=== PATIENT | female | born 1950 | race Hispanic/Latino ===

== ENCOUNTER → 2017-08-16 | Outpatient (CLI) | payer OTHER ==
[~2017-08-16] MED LIST: ASPI-555 PO; CHOL100044 PO; CILO100T PO; CITA-106 PO; CLOP75TA14 PO; DULA1.5P SQ; EZET10 PO; FURO40TA5 PO; INSU100I13 SQ; LOSA25TA21 PO; METO-408 PO; OMEP20CA10 PO; PLETAL PO; PREG300C PO; TRAM-355 PO
== END | disposition home or self-care (01) ==
LOC: SHCH 11:30
PROVIDERS: ATTEND Internal Medicine Cardiovascular Disease
DX: I65.21 Occlusion and stenosis of right carotid artery (principal)
CPT/HCPCS: 93880

== ENCOUNTER → 2017-09-05 | Outpatient (CLI) | payer OTHER | END | disposition home or self-care (01) | LOC: RAH 12:51 | PROVIDERS: ATTEND Internal Medicine | DX: I73.9 Peripheral vascular disease, unspecified (principal); E11.51 Type 2 diabetes mellitus with diabetic peripheral angiopathy without gangrene; I70.90 Unspecified atherosclerosis | CPT/HCPCS: 93925 ==

== ENCOUNTER → 2017-10-06 | Outpatient (CLI) | payer OTHER | END | disposition home or self-care (01) | LOC: RAH 14:06 | PROVIDERS: ATTEND Internal Medicine | DX: M19.072 Primary osteoarthritis, left ankle and foot (principal); M85.872 Other specified disorders of bone density and structure, left ankle and foot; N28.1 Cyst of kidney, acquired | CPT/HCPCS: 73620; 76770 ==

== ENCOUNTER → 2018-04-26 | Outpatient (CLI) | payer OTHER ==
[~2018-04-26] MED LIST changes: +LOSA25TA16 PO; -LOSA25TA21 PO
== END | disposition home or self-care (01) ==
LOC: RAH 12:52
PROVIDERS: ATTEND Internal Medicine
DX: N28.1 Cyst of kidney, acquired (principal)
CPT/HCPCS: 76770

== ENCOUNTER → 2019-01-15 | Outpatient (CLI) | payer OTHER ==
[~2019-01-15] MED LIST changes: +AMPI500C12 PO; +APIX5TAB PO; +ATOR40TA71 PO; +BISA5TAB12 PO; -CITA-106 PO; +CLON0.1T PO; -DULA1.5P SQ; +FERR325T22 PO; +FOLI1TAB15 PO; +FURO20TA4 PO; -FURO40TA5 PO; +HYDR-4153 PO; -INSU100I13 SQ; +INSU3INS3 SQ; +LINA145C PO; +LORA10TA7 PO; -LOSA25TA16 PO; -METO-408 PO; +METO25TA6 PO; -OMEP20CA10 PO; +OZEMPIC SQ; -PLETAL PO; +PREG225C PO; -PREG300C PO; +RANO10003 PO; -TRAM-355 PO; +TYL3 PO; +VITAMIN B12 PO
== END | disposition home or self-care (01) ==
LOC: SHCH 10:05
PROVIDERS: ATTEND Internal Medicine Cardiovascular Disease
DX: I65.23 Occlusion and stenosis of bilateral carotid arteries (principal)
CPT/HCPCS: 93880

== ENCOUNTER 2019-03-06 18:28 | Emergency (ER) | payer OTHER ==
[2019-03-06 19:03] LABS: BASOPHILS % (AUTO) 1.3 % (0.0-5.0); EOSINOPHILS % (AUTO) 6.6 % (0.0-8.0); HEMATOCRIT 29.3 % (36-48); LYMPHOCYTES % (AUTO) 27.6 % (21.0-51.0); MEAN CORPUSCULAR HEMOGLOBIN 28.5 pg (27.0-33.0); MEAN CORPUSCULAR HGB CONC 33.9 g/dL (32.0-36.0); MEAN CORPUSCULAR VOLUME 84.3 fL (79-99); MONOCYTES % (AUTO) 8.5 % (3.0-13.0); PLATELET COUNT (AUTO) 236 K/uL (130-400); RED BLOOD CELL COUNT(AUTO) 3.48 MIL/uL (4.00-5.50); RED CELL DISTRIBUTION WIDTH 14.8 % (11.0-15.5); WHITE BLOOD COUNT (AUTO) 7.6 K/uL (4.8-10.8)
[2019-03-06 19:17] LABS: CREATININE 2.8 mg/dL (0.5-1.5); POTASSIUM 5.8 mmol/L (3.5-5.1)
[2019-03-06 19:18] LABS: INR 0.91 (0.85-1.15); PARTIAL THROMBOPLASTIN TIME 29.9 SEC (26.3-35.5); PROTHROMBIN TIME 9.6 SEC (9.6-11.6)
[2019-03-06 19:23] LABS: ALBUMIN 2.9 g/dL (3.5-5.0); BILIRUBIN,TOTAL 0.1 mg/dL (0.2-1.0); TOTAL PROTEIN, SERUM 7.4 g/dL (6.0-8.3)
[2019-03-06] MEDS ORDERED: ALBUTEROL SULFATE 0.083% 2.5 MG/3 ML INH IH ONE (20:00)
[2019-03-06] MEDS ORDERED: SODIUM POLYSTYRENE SULFONATE 15 GM/60 ML ML ONE (20:07)
[2019-03-06] MEDS ORDERED: SODIUM BICARB 50MEQ 50ML VIAL ONE (20:08)
[2019-03-06] MEDS ORDERED: CALCIUM GLUCONATE 1 GM/10 ML VIAL IV ONE (20:08)
[2019-03-06 20:09] LABS: APPEARANCE,URINE Clear (CLEAR); BILIRUBIN,URINE Negative (NEGATIVE); COLOR,URINE Yellow (YELLOW); GLUCOSE, URINE (UA) >=1000 mg/dL (NEGATIVE); KETONES,URINE Negative (NEGATIVE); LEUKOCYTE ESTERASE ,URINE Negative (NEGATIVE); NITRATE,URINE Negative (NEGATIVE); OCCULT BLOOD,URINE Negative (NEGATIVE); PH,URINE 5.5 (5.0-8.0); PROTEIN,URINE 300 mg/dL (NEGATIVE); UROBILINOGEN,URINE 0.2 mg/dL (0.2-1.0)
[2019-03-06] MEDS ORDERED: INSULIN HUMULIN R 100 UNIT/ML 3ML ONE (20:09)
[2019-03-06] MEDS ORDERED: DEXTROSE 50%-WATER 50 ML DISP.SYRIN IV ONE (20:09)
[2019-03-06 20:24] LABS: BACTERIA,URINE Few /HPF (None Seen); MUCUS,URINE Few LPF (None Seen); RBC,URINE 0-1 /HPF (0-1); SQUAMOUS EPITHELIAL CELL,UR Few /HPF (0-2); WBC,URINE 0-1 /HPF (0-1)
== END 2019-03-06 22:27 | disposition home or self-care (01) ==
LOC: EDH 18:28
DX: E87.5 Hyperkalemia (principal); R10.13 Epigastric pain; E11.9 Type 2 diabetes mellitus without complications; E78.5 Hyperlipidemia, unspecified; I10 Essential (primary) hypertension; Z79.4 Long term (current) use of insulin; Z90.49 Acquired absence of other specified parts of digestive tract; Z79.899 Other long term (current) drug therapy; Z79.01 Long term (current) use of anticoagulants
CPT/HCPCS: 36415; 74176; 80053; 81001; 82150; 82550; 83690; 84132; 84484; 85025; 85610; 85730; 93005; 94640; 96374; 96375; 99285; J0610; J1815; J3490; J7070

== ENCOUNTER → 2020-01-16 | Outpatient (CLI) | payer OTHER ==
[~2020-01-16] MED LIST changes: -ASPI-555 PO; +ASPI-556 PO; -EZET10 PO; +EZET10TA13 PO
== END | disposition home or self-care (01) ==
LOC: RAH 12:51
PROVIDERS: ATTEND Internal Medicine
DX: M25.512 Pain in left shoulder (principal)
CPT/HCPCS: 73030

== ENCOUNTER → 2020-01-27 | Outpatient (CLI) | payer OTHER | END | disposition home or self-care (01) | LOC: RAH 10:00 | PROVIDERS: ATTEND Internal Medicine | DX: M51.17 Intervertebral disc disorders with radiculopathy, lumbosacral region (principal); M48.061 Spinal stenosis, lumbar region without neurogenic claudication | CPT/HCPCS: 72148 ==

== ENCOUNTER → 2020-06-03 | Outpatient (CLI) | payer OTHER | END | disposition home or self-care (01) | LOC: SHCH 15:38 | PROVIDERS: ATTEND Internal Medicine Cardiovascular Disease | DX: I82.403 Acute embolism and thrombosis of unspecified deep veins of lower extremity, bilateral (principal); I87.2 Venous insufficiency (chronic) (peripheral) | CPT/HCPCS: 93970 ==

== ENCOUNTER → 2020-07-13 | Outpatient (CLI) | payer OTHER | END | disposition home or self-care (01) | LOC: SHCH 10:46 | PROVIDERS: ATTEND Internal Medicine Cardiovascular Disease | DX: Z09 Encounter for follow-up examination after completed treatment for conditions other than malignant neoplasm (principal); I87.2 Venous insufficiency (chronic) (peripheral) | CPT/HCPCS: 93971 ==

== ENCOUNTER → 2020-07-20 | Outpatient (CLI) | payer OTHER | END | disposition home or self-care (01) | LOC: SHCH 10:00 | PROVIDERS: ATTEND Internal Medicine Cardiovascular Disease | DX: Z09 Encounter for follow-up examination after completed treatment for conditions other than malignant neoplasm (principal); I87.2 Venous insufficiency (chronic) (peripheral); I65.21 Occlusion and stenosis of right carotid artery | CPT/HCPCS: 93971 ==

== ENCOUNTER → 2020-08-31 | Outpatient (CLI) | payer OTHER | END | disposition home or self-care (01) | LOC: RAH 15:21 | PROVIDERS: ATTEND Internal Medicine | DX: M19.012 Primary osteoarthritis, left shoulder (principal); M85.812 Other specified disorders of bone density and structure, left shoulder; M85.88 Other specified disorders of bone density and structure, other site; E88.89 Other specified metabolic disorders | CPT/HCPCS: 73030; 73080 ==

== ENCOUNTER → 2020-09-03 | Outpatient (CLI) | payer OTHER | END | disposition home or self-care (01) | LOC: SHCH 15:26 | PROVIDERS: ATTEND Internal Medicine Cardiovascular Disease | DX: I73.9 Peripheral vascular disease, unspecified (principal) | CPT/HCPCS: 93925 ==

== ENCOUNTER → 2020-09-07 | Outpatient (CLI) | payer OTHER | END | disposition home or self-care (01) | LOC: SHCH 10:14 | PROVIDERS: ATTEND Internal Medicine Cardiovascular Disease | DX: Z09 Encounter for follow-up examination after completed treatment for conditions other than malignant neoplasm (principal); I87.2 Venous insufficiency (chronic) (peripheral) | CPT/HCPCS: 93971 ==

== ENCOUNTER 2020-11-11 22:18 | Inpatient (IN) | payer OTHER ==
[~2020-11-11] VITALS: Ht 175.3 cm; Wt 95.4 kg
[2020-11-11] MEDS: SODIUM CHLORIDE 0.9% 1000ML 1,000 ML IV SCH ×2 (21:45→23:30)
[2020-11-11] MEDS ORDERED: DIPHENHYDRAMINE HCL 25 MG CAPSULE PO PRN (23:30)
[2020-11-11] MEDS ORDERED: LACTULOSE 20 GM/30 ML UDCUP PO PRN (23:30)
[2020-11-11] MEDS ORDERED: DiphenhydrAMINE HCL 50 MG/ML VIAL IV PRN (23:30)
[2020-11-11] MEDS ORDERED: ACETAMINOPHEN 325 MG TAB PO PRN ×2 (23:30)
[2020-11-11] MEDS ORDERED: HYDRALAZINE HCL 25 MG TABLET PO SCH (23:30)
[2020-11-11] MEDS ORDERED: MAG HYDROX/AL HYDROX/SIMETH ES 30 ML SUSP UDCUP PO PRN (23:30)
[2020-11-11] MEDS ORDERED: ZOSYN 3.375GM+NS 50ML 50 ML IV ONE (23:57)
[2020-11-12] VITALS (7 sets, daily range): BP systolic 143–193; BP diastolic 46–81
[2020-11-12] MEDS ORDERED: LIDOCAINE HCL-MPF 1% 2ML VIAL IV PRN ×2
[2020-11-12] MEDS ORDERED: GLUCAGON 1MG KIT 1 MG ML IM PRN
[2020-11-12] MEDS ORDERED: POTASSIUM CHLORIDE 10% ELIXIR 20 MEQ/15 ML UDCUP PO PRN
[2020-11-12] MEDS ORDERED: ACETAMINOPHEN-CODEINE 300/30MG TAB PO PRN
[2020-11-12] MEDS ORDERED: POTASSIUM CHLORIDE 10MEQ/100ML 100 ML IV PRN ×2
[2020-11-12] MEDS ORDERED: DEXTROSE 50%-WATER 50 ML DISP.SYRIN IV PRN
[2020-11-12] MEDS ORDERED: POTASSIUM CHLORIDE 20 MEQ ERTAB PO PRN
[2020-11-12 00:41] LABS: BASOPHILS % (AUTO) 0.3 % (0.0-5.0); EOSINOPHILS % (AUTO) 2.5 % (0.0-8.0); LYMPHOCYTES % (AUTO) 10.1 % (21.0-51.0); MEAN CORPUSCULAR HEMOGLOBIN 25.8 pg (27.0-33.0); MEAN CORPUSCULAR HGB CONC 31.4 g/dL (32.0-36.0); MEAN CORPUSCULAR VOLUME 82.1 fL (79-99); MONOCYTES % (AUTO) 9.4 % (3.0-13.0); NEUTROPHILS % (AUTO) 77.3 % (40.0-77.0); PLATELET COUNT (AUTO) 268 K/uL (130-400); RED BLOOD CELL COUNT(AUTO) 3.41 MIL/uL (4.00-5.50); RED CELL DISTRIBUTION WIDTH 14.6 % (11.0-15.5); WHITE BLOOD COUNT (AUTO) 15.8 K/uL (4.8-10.8)
[2020-11-12 00:49] LABS: CREATININE 4.8 mg/dL (0.5-1.5); POTASSIUM 4.1 mmol/L (3.5-5.1)
[2020-11-12 00:58] LABS: ALBUMIN 1.9 g/dL (3.5-5.0); BILIRUBIN,TOTAL 1.4 mg/dL (0.2-1.0); TOTAL PROTEIN, SERUM 7.3 g/dL (6.0-8.3)
[2020-11-12 01:01] LABS: INR 1.04 (0.85-1.15); PROTHROMBIN TIME 11.3 SEC (9.6-11.6)
[2020-11-12 01:02] LABS: PARTIAL THROMBOPLASTIN TIME 33.7 SEC (26.3-35.5)
[2020-11-12 02:06] LABS: APPEARANCE,URINE Clear (CLEAR); BILIRUBIN,URINE Negative (NEGATIVE); COLOR,URINE Yellow (YELLOW); GLUCOSE, URINE (UA) 250 mg/dL (NEGATIVE); KETONES,URINE Negative (NEGATIVE); LEUKOCYTE ESTERASE ,URINE Negative (NEGATIVE); NITRATE,URINE Negative (NEGATIVE); OCCULT BLOOD,URINE Small (NEGATIVE); PROTEIN,URINE 300 mg/dL (NEGATIVE)
[2020-11-12 02:12] LABS: BACTERIA,URINE None Seen /HPF (None Seen); SQUAMOUS EPITHELIAL CELL,UR Rare /HPF (0-2); WBC,URINE None Seen /HPF (0-1); YEAST,URINE BUDDING None Seen /HPF (None Seen)
[2020-11-12] MEDS: CLONIDINE HCL 0.1 MG TABLET PO PRN (04:20)
[2020-11-12] MEDS: INSULIN HUMULIN R 100 UNIT/ML 3ML SQ SCH ×4 (06:31→21:00)
[2020-11-12] MEDS ORDERED: LOSA25TA41 PO (08:03)
[2020-11-12] MEDS ORDERED: HYDR-4153 PO (08:03)
[2020-11-12] MEDS ORDERED: FURO20TA4 PO (08:03)
[2020-11-12] MEDS ORDERED: VITAD50000 PO (08:03)
[2020-11-12] MEDS ORDERED: CILOSTAZOL 100 MG TAB PO SCH (09:00)
[2020-11-12] MEDS: PHARMACY COMMUNICATION MISC SCH ×2 (09:00→21:00)
[2020-11-12] MEDS ORDERED: PREGABALIN 75 MG CAPSULE PO SCH (09:00)
[2020-11-12] MEDS ORDERED: CLOPIDOGREL BISULFATE 75 MG TAB PO SCH (09:00)
[2020-11-12 09:54] LABS: CREATININE 4.7 mg/dL (0.5-1.5); POTASSIUM 4.3 mmol/L (3.5-5.1)
[2020-11-12] MEDS: PANTOPRAZOLE SODIUM 40 MG TABLET.DR PO SCH (10:00)
[2020-11-12] MEDS: EZETIMIBE 10 MG TAB PO SCH (10:00)
[2020-11-12] MEDS: ENOXAPARIN SODIUM 30 MG/0.3 ML SQ SCH (10:00)
[2020-11-12] MEDS: RANOLAZINE 500 MG TAB.SR.12H PO SCH ×2 (10:00→20:27)
[2020-11-12] MEDS: FERROUS SULFATE 325 MG TABLET.DR PO SCH (10:01)
[2020-11-12] MEDS: METOPROLOL TARTRATE 25 MG TAB PO SCH ×2 (10:01→20:31)
[2020-11-12] MEDS: FOLIC ACID 1 MG TABLET PO SCH (10:01)
[2020-11-12] MEDS: SODIUM CHLORIDE 0.9% 1000ML 1,000 ML IV SCH (10:02)
[2020-11-12] MEDS: ZOSYN 3.375GM+NS 50ML 50 ML IV SCH ×2 (11:55)
[2020-11-12] MEDS ORDERED: HONEY 1 APPL/ML TUBE TP ONE (14:36)
[2020-11-12] MEDS: ASPIRIN 81 MG EC TAB PO SCH (20:27)
[2020-11-12] MEDS: ATORVASTATIN CALCIUM 40 MG TABLET PO SCH (20:27)
[2020-11-12] MEDS ORDERED: INSULIN GLARGINE 100 UNITS/ML 10 ML VIAL SQ SCH (21:00)
[2020-11-13] MEDS: ZOSYN 3.375GM+NS 50ML 50 ML IV SCH ×2 (00:01→12:38)
[2020-11-13 04:00] VITALS: BP 136/58
[2020-11-13] MEDS: SODIUM CHLORIDE 0.9% 1000ML 1,000 ML IV SCH ×2 (05:26→17:41)
[2020-11-13 05:37] LABS: HEMATOCRIT 24.2 % (36-48); MEAN CORPUSCULAR HEMOGLOBIN 26.2 pg (27.0-33.0); MEAN CORPUSCULAR HGB CONC 31.8 g/dL (32.0-36.0); MEAN CORPUSCULAR VOLUME 82.3 fL (79-99); RED BLOOD CELL COUNT(AUTO) 2.94 MIL/uL (4.00-5.50); RED CELL DISTRIBUTION WIDTH 14.7 % (11.0-15.5); WHITE BLOOD COUNT (AUTO) 11.9 K/uL (4.8-10.8)
[2020-11-13 06:04] LABS: CREATININE 4.6 mg/dL (0.5-1.5); POTASSIUM 4.5 mmol/L (3.5-5.1)
[2020-11-13] MEDS: INSULIN HUMULIN R 100 UNIT/ML 3ML SQ SCH ×4 (06:06→20:24)
[2020-11-13 08:00] VITALS: BP 158/43
[2020-11-13] MEDS: FOLIC ACID 1 MG TABLET PO SCH (08:57)
[2020-11-13] MEDS: FERROUS SULFATE 325 MG TABLET.DR PO SCH (08:57)
[2020-11-13] MEDS: PANTOPRAZOLE SODIUM 40 MG TABLET.DR PO SCH (08:59)
[2020-11-13] MEDS: RANOLAZINE 500 MG TAB.SR.12H PO SCH ×2 (08:59→19:22)
[2020-11-13] MEDS: EZETIMIBE 10 MG TAB PO SCH (08:59)
[2020-11-13] MEDS: PHARMACY COMMUNICATION MISC SCH ×2 (09:00→19:15)
[2020-11-13] MEDS: ENOXAPARIN SODIUM 30 MG/0.3 ML SQ SCH (09:00)
[2020-11-13] MEDS: METOPROLOL TARTRATE 25 MG TAB PO SCH ×2 (10:11→19:23)
[2020-11-13] MEDS: HONEY 1 APPL/ML TUBE TP SCH (10:13)
[2020-11-13 11:54] VITALS: BP 204/73
[2020-11-13 12:41] LABS: INR 1.08 (0.85-1.15); PROTHROMBIN TIME 11.1 SEC (9.6-11.6)
[2020-11-13 16:00] VITALS: BP 191/57
[2020-11-13] MEDS: CLONIDINE HCL 0.1 MG TABLET PO PRN ×2 (17:42→20:25)
[2020-11-13] MEDS: ASPIRIN 81 MG EC TAB PO SCH (19:22)
[2020-11-13] MEDS: ATORVASTATIN CALCIUM 40 MG TABLET PO SCH (19:23)
[2020-11-13] MEDS: ACETAMINOPHEN-CODEINE 300/30MG TAB PO PRN (19:24)
[2020-11-13 23:46] VITALS: BP 172/56
[2020-11-14] VITALS (7 sets, daily range): BP systolic 144–206; BP diastolic 48–74
[2020-11-14] MEDS: SODIUM CHLORIDE 0.9% 1000ML 1,000 ML IV SCH
[2020-11-14] MEDS: INSULIN HUMULIN R 100 UNIT/ML 3ML SQ SCH ×4 (05:53→20:26)
[2020-11-14] MEDS: PHARMACY COMMUNICATION MISC SCH ×2 (05:53→20:27)
[2020-11-14 05:57] LABS: HEMATOCRIT 23.8 % (36-48); MEAN CORPUSCULAR HEMOGLOBIN 25.6 pg (27.0-33.0); MEAN CORPUSCULAR HGB CONC 31.1 g/dL (32.0-36.0); MEAN CORPUSCULAR VOLUME 82.4 fL (79-99); RED BLOOD CELL COUNT(AUTO) 2.89 MIL/uL (4.00-5.50); RED CELL DISTRIBUTION WIDTH 14.8 % (11.0-15.5); WHITE BLOOD COUNT (AUTO) 9.1 K/uL (4.8-10.8)
[2020-11-14 06:06] LABS: CREATININE 4.7 mg/dL (0.5-1.5); POTASSIUM 4.5 mmol/L (3.5-5.1)
[2020-11-14] MEDS: FOLIC ACID 1 MG TABLET PO SCH (09:35)
[2020-11-14] MEDS: RANOLAZINE 500 MG TAB.SR.12H PO SCH ×2 (09:35→19:49)
[2020-11-14] MEDS: PANTOPRAZOLE SODIUM 40 MG TABLET.DR PO SCH (09:35)
[2020-11-14] MEDS: METOPROLOL TARTRATE 25 MG TAB PO SCH ×2 (09:35→20:21)
[2020-11-14] MEDS: EZETIMIBE 10 MG TAB PO SCH (09:35)
[2020-11-14] MEDS: FERROUS SULFATE 325 MG TABLET.DR PO SCH (09:35)
[2020-11-14] MEDS: ENOXAPARIN SODIUM 30 MG/0.3 ML SQ SCH (09:36)
[2020-11-14] MEDS: HONEY 1 APPL/ML TUBE TP SCH (09:36)
[2020-11-14] MEDS: ZOSYN 3.375GM+NS 50ML 50 ML IV SCH ×3 (12:17→23:25)
[2020-11-14] MEDS: ONDANSETRON HCL 4 MG/2 ML VIAL IV PRN (12:17)
[2020-11-14] MEDS: CLONIDINE HCL 0.1 MG TABLET PO PRN (16:34)
[2020-11-14] MEDS: ATORVASTATIN CALCIUM 40 MG TABLET PO SCH (19:49)
[2020-11-14] MEDS: ASPIRIN 81 MG EC TAB PO SCH (20:21)
[2020-11-14] MEDS: HYDRALAZINE HCL 25 MG TABLET PO SCH (20:22)
[2020-11-15] VITALS (7 sets, daily range): BP systolic 119–210; BP diastolic 63–87
[2020-11-15] MEDS: ONDANSETRON HCL 4 MG/2 ML VIAL IV PRN (03:01)
[2020-11-15] MEDS: CLONIDINE HCL 0.1 MG TABLET PO PRN ×3 (03:51→17:24)
[2020-11-15] MEDS: INSULIN HUMULIN R 100 UNIT/ML 3ML SQ SCH ×4 (05:50→20:21)
[2020-11-15] MEDS: PHARMACY COMMUNICATION MISC SCH ×2 (09:00→20:14)
[2020-11-15] MEDS: EZETIMIBE 10 MG TAB PO SCH (10:06)
[2020-11-15] MEDS: FERROUS SULFATE 325 MG TABLET.DR PO SCH (10:07)
[2020-11-15] MEDS: RANOLAZINE 500 MG TAB.SR.12H PO SCH ×2 (10:07→20:15)
[2020-11-15] MEDS: FOLIC ACID 1 MG TABLET PO SCH (10:07)
[2020-11-15] MEDS: PANTOPRAZOLE SODIUM 40 MG TABLET.DR PO SCH (10:07)
[2020-11-15] MEDS: METOPROLOL TARTRATE 25 MG TAB PO SCH ×2 (10:07→20:15)
[2020-11-15] MEDS: HYDRALAZINE HCL 25 MG TABLET PO SCH ×3 (10:08→20:15)
[2020-11-15] MEDS: ENOXAPARIN SODIUM 30 MG/0.3 ML SQ SCH (10:08)
[2020-11-15] MEDS: ZOSYN 3.375GM+NS 50ML 50 ML IV SCH ×2 (11:33→23:44)
[2020-11-15] MEDS: METOCLOPRAMIDE 5 MG TABLET PO SCH (16:33)
[2020-11-15] MEDS: HONEY 1 APPL/ML TUBE TP SCH (17:25)
[2020-11-15] MEDS: ASPIRIN 81 MG EC TAB PO SCH (20:14)
[2020-11-15] MEDS: ATORVASTATIN CALCIUM 40 MG TABLET PO SCH (20:15)
[2020-11-16] VITALS (9 sets, daily range): BP systolic 103–229; BP diastolic 62–102
[2020-11-16] MEDS: CLONIDINE HCL 0.1 MG TABLET PO PRN ×3 (04:01→17:28)
[2020-11-16] MEDS: METOCLOPRAMIDE 5 MG TABLET PO SCH ×2 (04:50→17:27)
[2020-11-16] MEDS: INSULIN HUMULIN R 100 UNIT/ML 3ML SQ SCH ×4 (05:55→21:00)
[2020-11-16] MEDS: FOLIC ACID 1 MG TABLET PO SCH (08:24)
[2020-11-16] MEDS: HYDRALAZINE HCL 25 MG TABLET PO SCH ×3 (08:24→20:44)
[2020-11-16] MEDS: FERROUS SULFATE 325 MG TABLET.DR PO SCH (08:24)
[2020-11-16] MEDS: METOPROLOL TARTRATE 25 MG TAB PO SCH ×2 (08:24→20:44)
[2020-11-16] MEDS: PANTOPRAZOLE SODIUM 40 MG TABLET.DR PO SCH (08:25)
[2020-11-16] MEDS: RANOLAZINE 500 MG TAB.SR.12H PO SCH ×2 (08:25→20:44)
[2020-11-16] MEDS: ENOXAPARIN SODIUM 30 MG/0.3 ML SQ SCH (08:25)
[2020-11-16] MEDS: EZETIMIBE 10 MG TAB PO SCH (08:25)
[2020-11-16] MEDS: HONEY 1 APPL/ML TUBE TP SCH (08:26)
[2020-11-16] MEDS ORDERED: PIPE3.379 IV (08:43)
[2020-11-16] MEDS ORDERED: AMLO-257 PO (08:44)
[2020-11-16] MEDS: PHARMACY COMMUNICATION MISC SCH ×2 (09:00→21:00)
[2020-11-16] MEDS ORDERED: FUROSEMIDE 40 MG TABLET PO SCH (09:00)
[2020-11-16] MEDS: AMLODIPINE BESYLATE 5 MG TAB PO SCH (11:02)
[2020-11-16] MEDS: ZOSYN 3.375GM+NS 50ML 50 ML IV SCH (11:03)
[2020-11-16] MEDS: ACETAMINOPHEN-CODEINE 300/30MG TAB PO PRN (17:29)
[2020-11-16] MEDS: ATORVASTATIN CALCIUM 40 MG TABLET PO SCH (20:44)
[2020-11-16] MEDS: ASPIRIN 81 MG EC TAB PO SCH (20:45)
[2020-11-17] MEDS: ZOSYN 3.375GM+NS 50ML 50 ML IV SCH ×2 (00:59→12:39)
[2020-11-17 03:50] VITALS: BP 221/83
[2020-11-17 05:39] LABS: HEMATOCRIT 28.9 % (36-48); MEAN CORPUSCULAR HEMOGLOBIN 26.3 pg (27.0-33.0); MEAN CORPUSCULAR HGB CONC 31.8 g/dL (32.0-36.0); MEAN CORPUSCULAR VOLUME 82.6 fL (79-99); RED BLOOD CELL COUNT(AUTO) 3.5 MIL/uL (4.00-5.50); RED CELL DISTRIBUTION WIDTH 14.9 % (11.0-15.5); WHITE BLOOD COUNT (AUTO) 7.7 K/uL (4.8-10.8)
[2020-11-17 05:52] LABS: CREATININE 4.5 mg/dL (0.5-1.5); POTASSIUM 4.8 mmol/L (3.5-5.1)
[2020-11-17 07:30] VITALS: BP 228/91
[2020-11-17] MEDS: INSULIN HUMULIN R 100 UNIT/ML 3ML SQ SCH ×2 (07:30→11:53)
[2020-11-17] MEDS: METOPROLOL TARTRATE 25 MG TAB PO SCH (07:52)
[2020-11-17] MEDS: AMLODIPINE BESYLATE 5 MG TAB PO SCH (07:52)
[2020-11-17] MEDS: CLONIDINE HCL 0.1 MG TABLET PO PRN (07:53)
[2020-11-17] MEDS: RANOLAZINE 500 MG TAB.SR.12H PO SCH (07:54)
[2020-11-17] MEDS: METOCLOPRAMIDE 5 MG TABLET PO SCH (07:54)
[2020-11-17] MEDS: PANTOPRAZOLE SODIUM 40 MG TABLET.DR PO SCH (07:54)
[2020-11-17] MEDS: FOLIC ACID 1 MG TABLET PO SCH (07:54)
[2020-11-17] MEDS: FERROUS SULFATE 325 MG TABLET.DR PO SCH (07:54)
[2020-11-17] MEDS: EZETIMIBE 10 MG TAB PO SCH (07:54)
[2020-11-17] MEDS: ENOXAPARIN SODIUM 30 MG/0.3 ML SQ SCH (07:57)
[2020-11-17] MEDS: ONDANSETRON HCL 4 MG/2 ML VIAL IV PRN (07:58)
[2020-11-17] MEDS: HYDRALAZINE HCL 25 MG TABLET PO SCH (08:04)
[2020-11-17 11:00] VITALS: BP_SYST 121; BP_SYST 212; BP_DIAS 82
[2020-11-17] MEDS ORDERED: HYDR-4153 PO (11:42)
[2020-11-17] MEDS ORDERED: CLON0.1T PO (11:42)
[2020-11-17] MEDS ORDERED: HYDRALAZINE HCL 25 MG TABLET PO SCH ×2 (11:45)
[2020-11-17] MEDS ORDERED: CLONIDINE HCL 0.1 MG TABLET PO SCH ×2 (11:55→21:00)
[2020-11-17 14:00] VITALS: BP 165/54
== END 2020-11-17 18:00 | disposition home health service (06) | DRG 982 ==
LOC: EDH 22:18 → EDHIP 22:19 → UNDOADMIN 23:12 → EDHIP 23:12 → 3AH 11-12 01:09
PROVIDERS: ADMIT Internal Medicine; ATTEND Internal Medicine
PROC: 0JDQ0ZZ Extraction of Right Foot Subcutaneous Tissue and Fascia, Open Approach (ICD-10-PCS; principal; 2020-11-12)
PROC: 02HV33Z Insertion of Infusion Device into Superior Vena Cava, Percutaneous Approach (ICD-10-PCS; 2020-11-13)
PROC: B548ZZA Ultrasonography of Superior Vena Cava, Guidance (ICD-10-PCS; 2020-11-13)
DX: E11.69 Type 2 diabetes mellitus with other specified complication (principal); L03.115 Cellulitis of right lower limb; F11.20 Opioid dependence, uncomplicated; I13.0 Hypertensive heart and chronic kidney disease with heart failure and stage 1 through stage 4 chronic kidney disease, or unspecified chronic kidney disease; L97.419 Non-pressure chronic ulcer of right heel and midfoot with unspecified severity; M86.8X7 Other osteomyelitis, ankle and foot; L02.611 Cutaneous abscess of right foot; E11.621 Type 2 diabetes mellitus with foot ulcer; E11.22 Type 2 diabetes mellitus with diabetic chronic kidney disease; E11.3299 Type 2 diabetes mellitus with mild nonproliferative diabetic retinopathy without macular edema, unspecified eye; E11.51 Type 2 diabetes mellitus with diabetic peripheral angiopathy without gangrene; E11.65 Type 2 diabetes mellitus with hyperglycemia; E78.2 Mixed hyperlipidemia; F32.9 Major depressive disorder, single episode, unspecified; I25.10 Atherosclerotic heart disease of native coronary artery without angina pectoris; I50.9 Heart failure, unspecified; I65.23 Occlusion and stenosis of bilateral carotid arteries; I70.0 Atherosclerosis of aorta; I87.2 Venous insufficiency (chronic) (peripheral); K21.9 Gastro-esophageal reflux disease without esophagitis; L97.519 Non-pressure chronic ulcer of other part of right foot with unspecified severity; M15.9 Polyosteoarthritis, unspecified; N18.9 Chronic kidney disease, unspecified; M54.16 Radiculopathy, lumbar region; I77.1 Stricture of artery; B96.1 Klebsiella pneumoniae [K. pneumoniae] as the cause of diseases classified elsewhere; M48.061 Spinal stenosis, lumbar region without neurogenic claudication; Z79.01 Long term (current) use of anticoagulants; Z79.02 Long term (current) use of antithrombotics/antiplatelets; Z79.4 Long term (current) use of insulin; Z79.899 Other long term (current) drug therapy; Z82.0 Family history of epilepsy and other diseases of the nervous system; Z82.3 Family history of stroke; Z82.49 Family history of ischemic heart disease and other diseases of the circulatory system; Z82.5 Family history of asthma and other chronic lower respiratory diseases; Z83.3 Family history of diabetes mellitus; Z98.61 Coronary angioplasty status; Z79.2 Long term (current) use of antibiotics
CPT/HCPCS: 36415; 36600; 71045; 73630; 73718; 80048; 80053; 81001; 82948; 85025; 85027; 85610; 85730; 87040; 87070; 87076; 87077; 87088; 87186; 87205; C1894; G0378; J1650; J1815; J2405; J2543; J7030

== ENCOUNTER → 2022-05-19 | Outpatient (CLI) | payer OTHER ==
[~2022-05-19] MED LIST changes: +AMLO-257 PO; -AMPI500C12 PO; -CHOL100044 PO; -OZEMPIC SQ; +PIPE3.379 IV; -PREG225C PO; +VITAD50000 PO
== END | disposition home or self-care (01) ==
LOC: RAH 09:32
PROVIDERS: ATTEND Internal Medicine Gastroenterology
DX: N28.1 Cyst of kidney, acquired (principal); R10.13 Epigastric pain; Z90.49 Acquired absence of other specified parts of digestive tract
CPT/HCPCS: 76700

== ENCOUNTER 2022-05-26 05:53 | Day surgery (SDC) | payer OTHER ==
[2022-05-24 11:29] LABS: BASOPHILS % (AUTO) 0.6 % (0.0-5.0); EOSINOPHILS % (AUTO) 16.8 % (0.0-8.0); HEMATOCRIT 31.7 % (36-48); LYMPHOCYTES % (AUTO) 13.2 % (21.0-51.0); MEAN CORPUSCULAR HEMOGLOBIN 29.7 pg (27.0-33.0); MEAN CORPUSCULAR HGB CONC 31.9 g/dL (32.0-36.0); MEAN CORPUSCULAR VOLUME 93.2 fL (79-99); MONOCYTES % (AUTO) 10.9 % (3.0-13.0); NEUTROPHILS % (AUTO) 57.5 % (40.0-77.0); PLATELET COUNT (AUTO) 188 K/uL (130-400); RED CELL DISTRIBUTION WIDTH 13.9 % (11.0-15.5); WHITE BLOOD COUNT (AUTO) 9.7 K/uL (4.8-10.8)
[2022-05-24 11:40] LABS: INR 0.99 (0.85-1.15); PROTHROMBIN TIME 10.8 SEC (9.6-11.6)
[2022-05-24 11:41] LABS: PARTIAL THROMBOPLASTIN TIME 29.9 SEC (26.3-35.5)
[2022-05-24 11:58] LABS: POTASSIUM 4.9 mmol/L (3.5-5.1)
[2022-05-24 12:17] LABS: CREATININE 9.2 mg/dL (0.5-1.5)
[2022-05-24 12:37] LABS: B-TYPE NATRIURETIC PEPTIDE 353 pg/mL (0-100)
[2022-05-26] VITALS (10 sets, daily range): BP systolic 126–136; BP diastolic 47–60
[~2022-05-26] VITALS: Ht 154.9 cm; Wt 96.2 kg
[~2022-05-26 05:53] MED LIST changes: -AMLO-257 PO; -APIX5TAB PO; -ASPI-556 PO; -ATOR40TA71 PO; +B&C/1TAB3 PO; +BISA-151 PO; -BISA5TAB12 PO; +CALC0.253 PO; +CARV25TA PO; -CILO100T PO; -CLOP75TA14 PO; +DIPH25CA53 PO; +EZET-61 PO; -EZET10TA13 PO; +FERR210T PO; -FERR325T22 PO; -FOLI1TAB15 PO; -FURO20TA4 PO; -HYDR-4153 PO; +HYDR-4154 PO; +INSLAN SQ; -INSU3INS3 SQ; -LINA145C PO; -LORA10TA7 PO; +LOSA50TA64 PO; -METO25TA6 PO; +NIFE-40 PO; -PIPE3.379 IV; +PREG225C7 PO; -RANO10003 PO; -VITAMIN B12 PO
[2022-05-26] MEDS ORDERED: 0.9%NACL 1000ML 1,000 ML IV ONE (06:56)
[2022-05-26] MEDS ORDERED: LIDOCAINE HCL 1% 20 ML VIAL ONE (07:13)
[2022-05-26] MEDS ORDERED: IODIXANOL 320 MG/ML 100 ML VIAL ONE (07:14)
[2022-05-26] MEDS ORDERED: MIDAZOLAM HCL 1 MG/ML 2ML VIAL ONE (07:14)
[2022-05-26] MEDS ORDERED: FENTANYL CITRATE PF 50 MCG/1 ML 2ML VIAL ONE (07:14)
[2022-05-26] MEDS ORDERED: HEPARIN 10,000 UNIT/10ML (1,000 UNIT/ML) VIAL ONE (07:14)
[2022-05-26] MEDS ORDERED: CLOPIDOGREL 300MG TAB ONE (08:27)
[2022-05-26] MEDS ORDERED: ASPIRIN 81MG CHEW TAB ONE (08:27)
[2022-05-26] MEDS ORDERED: GLUCAGON 1MG KIT 1 MG ML IM PRN (08:30)
[2022-05-26] MEDS ORDERED: DEXTROSE 50%-WATER 50 ML DISP.SYRIN IV PRN (08:30)
[2022-05-26] MEDS ORDERED: TRAMADOL /APAP 37.5MG/325MG TAB PO PRN (11:00)
[2022-05-26] MEDS ORDERED: INSULIN HUMULIN R 100 UNIT/ML 3ML SQ SCH (11:30)
== END 2022-05-26 11:44 | disposition home or self-care (01) ==
LOC: DAH 05:53
PROVIDERS: ATTEND Internal Medicine Cardiovascular Disease
DX: E34.0 Carcinoid syndrome (principal); I87.1 Compression of vein; I87.2 Venous insufficiency (chronic) (peripheral); E11.22 Type 2 diabetes mellitus with diabetic chronic kidney disease; I12.0 Hypertensive chronic kidney disease with stage 5 chronic kidney disease or end stage renal disease; N18.6 End stage renal disease; E11.51 Type 2 diabetes mellitus with diabetic peripheral angiopathy without gangrene; I48.0 Paroxysmal atrial fibrillation; E78.5 Hyperlipidemia, unspecified; E66.9 Obesity, unspecified; I25.10 Atherosclerotic heart disease of native coronary artery without angina pectoris; Z95.5 Presence of coronary angioplasty implant and graft; Z68.34 Body mass index [BMI] 34.0-34.9, adult; Z99.2 Dependence on renal dialysis; Z90.49 Acquired absence of other specified parts of digestive tract; Z98.890 Other specified postprocedural states; Z82.49 Family history of ischemic heart disease and other diseases of the circulatory system; Z79.4 Long term (current) use of insulin; Z79.899 Other long term (current) drug therapy; Z79.01 Long term (current) use of anticoagulants
CPT/HCPCS: 80048; 83880; 85025; 85610; 85730; 36415; 71045; 93005; 37238; 36010; 37252; 37253 ×4; 82948; 75822; C1876; C1894 ×3; C1725; C1753; C1769; J3010; J7030; J1644 ×2; J2250; Q9967; A4215; A4222; A4221; A4663; A4216; A4606; A4223 ×3; 36012